=== PATIENT | male | born 1935 ===

== ENCOUNTER 2021-04-20 13:10 | Emergency (ER) | payer MEDICARE, OTHER ==
[2021-04-20] MEDS ORDERED: SODIUM CHLORIDE 0.9% 50 ML IVPB ONE (17:15)
[2021-04-20] MEDS ORDERED: BAMLANIVIMAB (EUA) 700 MG, ETESEVIMAB (EUA) 1,400 MG in SODIUM CHLORIDE 0.9% 100 ML IVPB ONE (17:15)
[2021-04-20 17:55] VITALS: BP 157/76; PULSE 79; RESP 16; TEMP 97.9
--- NOTE | 2021-04-20 18:31 | ED ---
URI HPI - General Chief Complaint: Upper Respiratory Infection Stated Complaint: wants bam infusion Time Seen by Provider: 04/20/21 17:01 Source: patient Mode of arrival: ambulatory Limitations: language barrier - History of Present Illness Initial Comments: 86 year-old male patient presents to the emergency department for monoclonal antibody infusion. He had COVID swab at outpatient urgent care which was positive. He has been having sore throat, mild cough, and body aches. Denies any shortness of breath or chest pain. Denies vomiting or diarrhea. Does have history of kidney transplant. He was vaccinated. Patient denies any recent rash, abdominal pain, constipation, back pain, numbness, tingling, dizziness, weakness, hematuria, dysuria, urinary urgency, urinary frequency, headache, visual changes, or any other complaints. - Related Data Allergies Allergy/AdvReac Type Severity Reaction Status Date / Time No Known Allergies Allergy Verified 04/20/21 16:19 Review of Systems ROS Statement: Those systems with pertinent positive or pertinent negative responses have been documented in the HPI. ROS Other: All systems not noted in ROS Statement are negative. Past Medical History Past Medical History: Hypertension Additional Past Medical History / Comment(s): CKD, renal transplant, dyslipidemia History of Any Multi-Drug Resistant Organisms: None Reported Past Psychological History: No Psychological Hx Reported Smoking Status: Never smoker Past Alcohol Use History: None Reported Past Drug Use History: None Reported General Exam Limitations: language barrier General appearance: alert, in no apparent distress, other (This is a well- developed, well-nourished elderly male patient in no acute distress.) ENT exam: Present: normal exam, normal oropharynx, mucous membranes moist Respiratory exam: Present: normal lung sounds bilaterally. Absent: respiratory distress, wheezes, rales, rhonchi, stridor Cardiovascular Exam: Present: regular rate, normal rhythm, normal heart sounds. Absent: systolic murmur, diastolic murmur, rubs, gallop, clicks GI/Abdominal exam: Present: soft, normal bowel sounds. Absent: distended, tenderness, guarding, rebound, rigid Neurological exam: Present: alert, oriented X3, CN II-XII intact Psychiatric exam: Present: normal affect, normal mood Skin exam: Present: warm, dry, intact, normal color. Absent: rash Course Vital Signs 04/20/21 04/20/21 16:04 17:52 Temperature 99.2 F 97.9 F Pulse Rate 91 79 Respiratory 18 16 Rate Blood Pressure 138/78 157/76 O2 Sat by Pulse 96 97 Oximetry Medical Decision Making - Medical Decision Making 86-year-old male patient experiencing mild upper respiratory symptoms for the last couple of days presented for monoclonal antibody infusion after testing positive for COVID-19 palpation. Physical examination is unremarkable. He is resting comfortable in no distress. Vital signs unremarkable. He did receive the antibody infusion without difficulty. He'll be discharged to follow up with the primary care physician for recheck in 1-2 days. Return parameters were discussed in detail. He verbalizes understanding and agrees with this plan. My attending is Dr. Alexander. Disposition Clinical Impression: COVID-19 Disposition: HOME SELF-CARE Condition: Good Instructions (If sedation given, give patient instructions): Coronavirus Disease 2019 (COVID-19) Additional Instructions: Tips to help you feel better: -Maintain adequate fluid intake - especially water. -Rest, you are healing your body will require extra sleep. -Eat even if you do not feel like it - broth, jello, toast are fine if you cannot eat full meals. -Take tylenol and motrin alternating (if you have no allergies or have not been instructed to avoid these medications) to help with body aches and fevers. -Obtain over the counter vitamin C, zinc, and vitamin D3. -Take medications as prescribed. Follow-up with your primary care physician for recheck in 1-2 days. Return for any new, worsening, or concerning symptoms. Is patient prescribed a controlled substance at d/c from ED?: No Referrals: Nonstaff,Physician [Primary Care Provider] - 1-2 days Time of Disposition: 18:31
== END 2021-04-20 18:30 | disposition home or self-care (01) ==
LOC: EDSEX → EC 13:10
DX: U07.1 COVID-19 (principal); I12.9 Hypertensive chronic kidney disease with stage 1 through stage 4 chronic kidney disease, or unspecified chronic kidney disease; N18.9 Chronic kidney disease, unspecified; E78.5 Hyperlipidemia, unspecified
CPT/HCPCS: 99283; M0245